=== PATIENT | female | born 1985 | race Caucasian/White ===

== ENCOUNTER 2021-02-21 15:31 | Emergency (ER) | payer SELFPAY ==
[~2021-02-21] VITALS: Ht 160 cm; Wt 59.0 kg
--- NOTE | 2021-02-21 15:45 | NUR ---
RECEIVED PT IN BED 7, STABLE, NAD, VSS, MULTIPLE COMPLAINTS, AWAITING ADDITIONAL ASSESSMENT AND DISPOSITION WITH PLAN OF CARE.
[2021-02-21 15:50] VITALS: BP_SYST 118
--- NOTE | 2021-02-21 15:50 | NUR ---
Pt to bed 7 for evaluation.
--- NOTE | 2021-02-21 15:55 | NUR ---
Pt AAO and ambulatory pashto speaking requiring translation. Pt reports multiple complaints beginning with a sore throat, abdominal pain, lung pain, and neck/shoulder discomfort. Pt reports history of anxiety and depression. Pt reports that she is having generalized pain 09/16.
--- NOTE | 2021-02-21 16:00 | NUR ---
Dr. Proctor at bedside to assess.
[2021-02-21] MEDS ORDERED: MAG-AL HYDROX/SIMETH 30 ML UDC PO ONE (16:15)
[2021-02-21 17:01] LABS: BILIRUBIN,URINE NEGATIVE (NEGATIVE); BLOOD, URINE NEGATIVE (NEGATIVE); CLARITY/URINE CLEAR (CLEAR); COLOR,URINE YELLOW (YELLOW); GLUCOSE,URINE NEGATIVE (NEGATIVE); KETONES,URINE NEGATIVE (NEGATIVE); LEUKOCYTE ESTERASE ,URINE NEGATIVE (NEGATIVE); NITRITE, URINE NEGATIVE (NEGATIVE); PROTEIN URINE NEGATIVE (NEGATIVE); UROBILINOGEN,URINE 0.2 (0.2-1.0)
--- NOTE | 2021-02-21 17:31 | NUR ---
PT DISCHARGED HOME STABLE WITH NAD, VSS, SOME MILD SORE THROAT, GIVEN JIHAN, AND DISPOSITION WITH PLAN OF CARE.
== END 2021-02-21 17:31 | disposition home or self-care (01) ==
LOC: SED 15:31
DX: B34.9 Viral infection, unspecified (principal); R51.9 Headache, unspecified; F41.9 Anxiety disorder, unspecified; F32.9 Major depressive disorder, single episode, unspecified; Z79.899 Other long term (current) drug therapy; Z20.822 Contact with and (suspected) exposure to COVID-19
CPT/HCPCS: 81003; 81025; 93005; 99284; U0003